=== PATIENT | female | born 1970 | race American Indian/Alaskan Native ===

== ENCOUNTER 2021-03-05 13:43 | Emergency (ER) | payer MEDICAID ==
[2021-03-05 16:06] VITALS: BP 154/97
[2021-03-05 17:53] LABS: Basophils % (Auto) 0.3 % (0.0-1.8); Eosinophils # (Auto) 0.2 K/mm3 (0.0-0.4); Eosinophils % (Auto) 1.8 % (0.0-4.3); Hematocrit 36.6 % (30.3-42.9); Hemoglobin 12.1 gm/dl (10.1-14.3); Lymphocytes # (Auto) 2.9 K/mm3 (1.2-5.4); Lymphocytes % (Auto) 26.8 % (13.4-35.0); Mean Corpuscular HGB Conc 33 % (30-34); Mean Corpuscular Volume 93 fl (79-97); Monocytes # (Auto) 0.5 K/mm3 (0.0-0.8); Monocytes % (Auto) 4.4 % (0.0-7.3); Platelet Count 322 K/mm3 (140-440); Red Blood Count 3.96 M/mm3 (3.65-5.03); Red Cell Distribution Width 17.2 % (13.2-15.2)
[2021-03-05 18:14] LABS: Alanine Aminotransferase 15 units/L (7-56); Albumin 3.8 g/dL (3.9-5); BUN/Creatinine Ratio 21; Blood Urea Nitrogen 17 mg/dL (7-17); Calcium 8.9 mg/dL (8.4-10.2); Hemolysis Index 1
--- NOTE | 2021-03-05 18:49 | Emergency Department Report ---
ED General Adult HPI - General Chief complaint: Extremity Problem,Nontraumatic Stated complaint: FEET SWEELING Time Seen by Provider: 03/05/21 16:26 Source: patient Mode of arrival: Ambulatory Limitations: No Limitations - History of Present Illness Initial comments: 50-year-old -[place] female patient with history of diabetes, hypertension, and COPD presents with complaints of bilateral ankle and foot swelling x4 days. Patient states her symptoms began after she had a long bus ride from [place]. She denies any chest pain, shortness of breath, hemoptysis, history of DVT/PE/cancer, hormone use, or leg trauma. She states the pain is radiating into her lower legs bilaterally. She states the pain is mild and rates it as a 4/10 in severity. She states the swelling did improve somewhat with leg elevation. - Related Data Allergies Allergy/AdvReac Type Severity Reaction Status Date / Time Penicillins Allergy Hives Verified 03/05/21 16:03 IV contrast Allergy Shortness Uncoded 03/05/21 16:03 of Breath ED Review of Systems ROS: Stated complaint: FEET SWEELING Other details as noted in HPI Constitutional: denies: chills, fever, malaise Respiratory: denies: shortness of breath Cardiovascular: denies: chest pain Musculoskeletal: joint swelling. denies: arthralgia Skin: denies: lesions, change in color Hematological/Lymphatic: denies: swollen glands ED Past Medical Hx - Past Medical History Previous Medical History?: Yes Hx Hypertension: Yes Hx Diabetes: Yes Hx COPD: Yes - Surgical History Past Surgical History?: Yes Additional Surgical History: , hyst ED Physical Exam - General Limitations: No Limitations General appearance: alert, in no apparent distress - Head Head exam: Present: atraumatic, normocephalic - Eye Eye exam: Absent: scleral icterus - Respiratory Respiratory exam: Present: normal lung sounds bilaterally. Absent: respiratory distress - Cardiovascular Cardiovascular Exam: Present: regular rate, normal rhythm - Extremities Exam Extremities exam: Present: pedal edema (Bilateral 1+ pitting with mild tenderness to palpation; no erythema or skin changes noted; pedal pulses palpated bilaterally), calf tenderness (Minimal lower calf bilaterally without skin changes or swelling noted) - Neurological Exam Neurological exam: Present: alert, oriented X3 - Psychiatric Psychiatric exam: Present: normal affect, normal mood - Skin Skin exam: Present: warm, dry, intact, normal color. Absent: rash ED Course Vital Signs 03/05/21 16:03 Temperature 97.6 F Pulse Rate 91 H Respiratory 20 Rate Blood Pressure 154/97 O2 Sat by Pulse 96 Oximetry ED Medical Decision Making - Lab Data Result diagrams: 03/05/21 17:16 03/05/21 17:16 Lab Results 03/05/21 03/05/21 Range/Units 17:16 17:16 WBC 10.9 (4.5-11.0) K/mm3 RBC 3.96 (3.65-5.03) M/mm3 Hgb 12.1 (10.1-14.3) gm/dl Hct 36.6 (30.3-42.9) % MCV 93 (79-97) fl MCH 31 (28-32) pg MCHC 33 (30-34) % RDW 17.2 H (13.2-15.2) % Plt Count 322 (140-440) K/mm3 Lymph % (Auto) 26.8 (13.4-35.0) % Woodward % (Auto) 4.4 (0.0-7.3) % Eos % (Auto) 1.8 (0.0-4.3) % Baso % (Auto) 0.3 (0.0-1.8) % Lymph # (Auto) 2.9 (1.2-5.4) K/mm3 Woodward # (Auto) 0.5 (0.0-0.8) K/mm3 Eos # (Auto) 0.2 (0.0-0.4) K/mm3 Baso # (Auto) 0.0 (0.0-0.1) K/mm3 Seg Neutrophils % 66.7 (40.0-70.0) % Seg Neutrophils # 7.3 (1.8-7.7) K/mm3 Sodium 144 (137-145) mmol/L Potassium 3.8 (3.6-5.0) mmol/L Chloride 111.5 H (98-107) mmol/L Carbon Dioxide 18 L (22-30) mmol/L Anion Gap 18 mmol/L BUN 17 (7-17) mg/dL Creatinine 0.8 (0.6-1.2) mg/dL Estimated GFR > 60 ml/min BUN/Creatinine Ratio 21 % Glucose 132 H (65-100) mg/dL Calcium 8.9 (8.4-10.2) mg/dL Total Bilirubin 0.40 (0.1-1.2) mg/dL AST 16 (5-40) units/L ALT 15 (7-56) units/L Alkaline Phosphatase 138 H (35-129) units/L NT-Pro-B Natriuret Pep 202.2 (0-900) pg/mL Total Protein 7.0 (6.3-8.2) g/dL Albumin 3.8 L (3.9-5) g/dL Albumin/Globulin Ratio 1.2 % - Radiology Data Radiology results: report reviewed DUPLEX DOPPLER LOWER EXTREMITY VEINS, BILATERAL INDICATION / CLINICAL INFORMATION: swelling and pain. TECHNIQUE: Duplex doppler imaging was performed through the veins of both lower extremities using venous compression and other maneuvers. COMPARISON: None available. FINDINGS: RIGHT COMMON FEMORAL VEIN: Negative. RIGHT FEMORAL VEIN: Negative. RIGHT POPLITEAL VEIN: Negative. RIGHT CALF VEINS: Negative. LEFT COMMON FEMORAL VEIN: Negative. LEFT FEMORAL VEIN: Negative. LEFT POPLITEAL VEIN: Negative. LEFT CALF VEINS: Negative. ADDITIONAL FINDINGS: None. IMPRESSION: 1. No sonographic evidence for DVT in either lower extremity. - Medical Decision Making 50-year-old -[place] female patient with history of diabetes, hypertension, and COPD presents with complaints of bilateral ankle and foot swelling x4 days. Patient states her symptoms began after she had a long bus ride from [place]. She denies any chest pain, shortness of breath, hemoptysis, history of DVT/PE/cancer, hormone use, or leg trauma. She states the pain is radiating into her lower legs bilaterally. She states the pain is mild and rates it as a 4/10 in severity. She states the swelling did improve somewhat with leg elevation. No significant abnormalities noted on labs. Ultrasound of the lower extremities is negative for DVT. Suspect dependent edema. Recommend compression hose and elevation of the legs. She is well-appearing and stable for discharge home. Strict return precautions were discussed in detail with patient who verbalizes understanding. Patient to follow-up with her primary care doctor in 3 to 5 days. Critical care attestation.: If time is entered above; I have spent that time in minutes in the direct care of this critically ill patient, excluding procedure time. ED Disposition Clinical Impression: Pedal edema, Elevated liver enzymes Disposition: TO HOME OR SELFCARE Is pt being admited?: No Condition: Stable Instructions: Peripheral Edema Referrals: PRIMARY CARE, [Referring] - 3-5 Days
--- NOTE | 2021-03-05 19:38 | Vascular Lab Report ---
DUPLEX DOPPLER LOWER EXTREMITY VEINS, BILATERAL INDICATION / CLINICAL INFORMATION: swelling and pain. TECHNIQUE: Duplex doppler imaging was performed through the veins of both lower extremities using donal ous compression and other maneuvers. COMPARISON: None available. FINDINGS: RIGHT COMMON FEMORAL VEIN: Negative. RIGHT FEMORAL VEIN: Negative. RIGHT POPLITEAL VEIN: Negative. RIGHT CALF VEINS: Negative. LEFT COMMON FEMORAL VEIN: Negative. LEFT FEMORAL VEIN: Negative. LEFT POPLITEAL VEIN: Negative. LEFT CALF VEINS: Negative. ADDITIONAL FINDINGS: None. IMPRESSION: 1. No sonographic evidence for DVT in either lower extremity. Signer Name: Jovi Boyd DO Signed: 03/05/2021 7:34 PM Workstation Name: [id number]
== END 2021-03-05 20:32 | disposition home or self-care (01) ==
LOC: ED 13:43
DX: R60.0 Localized edema (principal); R94.5 Abnormal results of liver function studies; I10 Essential (primary) hypertension; E11.9 Type 2 diabetes mellitus without complications; J44.9 Chronic obstructive pulmonary disease, unspecified
CPT/HCPCS: 36415; 80053; 83880; 85025; 93970; 99284